=== PATIENT | female | born 1985 | race Caucasian/White ===

== ENCOUNTER 2024-12-17 14:17 | Observation (INO) | payer OTHER ==
[2024-12-17 14:50] LABS: Bacteria/HPF None Seen HPF (None Seen); CAUTI Indications for Culture Pelvic or flank pain; Glucose, Urine (Dipstick) Normal (Negative); Leukocyte Negative Leu/uL (Negative); Protein, Urine (Dipstick) 50 mg/dL (Neg-Trace); RBC/HPF 21-50 HPF (0-3); Specific Gravity, Urine 1.048 (1.002-1.036); WBC/HPF 0-3 HPF (0-3); Yeast-Budding 1+ HPF (None Seen)
[2024-12-17 14:52] LABS: Urine Culture Reflex No No
[2024-12-17 15:02] LABS: BHCG - Serum Negative (NEGATIVE); Pregs Control Background? CLEAR/WHITE (CLR/WHITE); Pregs Control Bar Appear? YES (CONTROL BAR)
[2024-12-17] MEDS ORDERED: Ondansetron PF 4 MG/2 ML Vial ONE (15:02)
[2024-12-17 15:11] LABS: ALT (SGPT) 48 U/L (Less than 34); AST (SGOT) 76 U/L (11-34); Albumin 4.1 g/dL (3.1-4.5); Alkaline Phosphatase 113 U/L (40-110); Anion Gap 13 mmol/L (10-20); BUN (Urea Nitrogen) 15 mg/dL (7.0-18.7); Bilirubin, Total 0.8 mg/dL (0.3-1.2); Calc. Creatinine Clearance 0 mL/min (70-130); Calcium 9.6 mg/dL (7.8-10.44); Carbon Dioxide 23 mmol/L (22-29); Chloride 108 mmol/L (98-107); Globulin 3.5 g/dL (2.4-3.5); Glucose 98 mg/dL (70-105); Lipase 15 U/L (8-78); Magnesium 2.0 mg/dL (1.6-2.6); Potassium 4.5 mmol/L (3.5-5.1); Sodium 139 mmol/L (136-145)
[2024-12-17 15:16] LABS: #Basophils 0.06 10x3/uL (0.0-0.2); #Eosinophils 0.32 10x3/uL (0.0-0.7); #Monocytes 0.47 10x3/uL (0.11-0.59); #Neutrophils 4.28 10x3/uL (1.40-6.50); %Basophils 0.8 % (0.0-1.0); %Eosinophils 4.1 % (0.0-10.0); %Lymphocytes 33.9 % (21.0-51.0); %Monocytes 6.0 % (0.0-10.0); %Neutrophils 54.8 % (42.0-75.0); Hematocrit 37.8 % (36.0-47.0); Hemoglobin 12.4 g/dL (12.0-16.0); Mean Corpuscular Hemoglobin 30.8 pg (27.0-31.0); Mean Corpuscular Volume 93.8 fL (78.0-98.0); Platelet Count 230 10x3/uL (130-400); Red Blood Cell (RBC) Count 4.03 mill/uL (4.20-5.40); White Blood Cell (WBC) Count 7.81 10x3/uL (4.8-10.8)
[2024-12-17] MEDS ORDERED: Ketorolac Tromethamine 30 MG (1 mL) VIAL ONE ×2 (15:47→15:49)
[2024-12-17 17:00] VITALS: BMI 26.5
[2024-12-17] MEDS ORDERED: Ondansetron PF 4 MG/2 ML Vial IVP PRN (17:06)
[2024-12-17] MEDS ORDERED: Glucagon 1 MG/ML KIT IM PRN (17:06)
[2024-12-17] MEDS ORDERED: Dextrose 50% Abboject 50 ML SYRINGE SLOW IVP PRN (17:06)
[2024-12-17] MEDS ORDERED: Acetaminophen 325 MG TAB PO PRN (17:06)
[2024-12-17] MEDS ORDERED: CEFAZOLIN 1 GM VIAL SLOW IVP SCH (21:00)
[2024-12-17] MEDS: Lidocaine 2% Viscous Solution 10 ML, Aluminum & Magnesium Hydroxide 30 ML SSW SCH (22:14)
[2024-12-18 06:02] LABS: #Basophils 0.05 10x3/uL (0.0-0.2); #Eosinophils 0.15 10x3/uL (0.0-0.7); #Monocytes 0.35 10x3/uL (0.11-0.59); #Neutrophils 2.51 10x3/uL (1.40-6.50); %Basophils 1.0 % (0.0-1.0); %Eosinophils 3.1 % (0.0-10.0); %Lymphocytes 35.6 % (21.0-51.0); %Monocytes 7.3 % (0.0-10.0); %Neutrophils 52.4 % (42.0-75.0); Hematocrit 32.7 % (36.0-47.0); Hemoglobin 10.8 g/dL (12.0-16.0); Mean Corpuscular Hemoglobin 31.3 pg (27.0-31.0); Mean Corpuscular Volume 94.8 fL (78.0-98.0); Platelet Count 186 10x3/uL (130-400); Red Blood Cell (RBC) Count 3.45 mill/uL (4.20-5.40); White Blood Cell (WBC) Count 4.80 10x3/uL (4.8-10.8)
[2024-12-18 06:19] LABS: ALT (SGPT) 510 U/L (Less than 34); AST (SGOT) 669 U/L (11-34); Albumin 3.1 g/dL (3.1-4.5); Alkaline Phosphatase 106 U/L (40-110); Anion Gap 8 mmol/L (10-20); BUN (Urea Nitrogen) 13 mg/dL (7.0-18.7); Bilirubin, Total 0.9 mg/dL (0.3-1.2); Calc. Creatinine Clearance 144 mL/min (70-130); Calcium 8.3 mg/dL (7.8-10.44); Carbon Dioxide 21 mmol/L (22-29); Chloride 113 mmol/L (98-107); Globulin 2.4 g/dL (2.4-3.5); Glucose 83 mg/dL (70-105); Potassium 4.3 mmol/L (3.5-5.1); Sodium 138 mmol/L (136-145)
[2024-12-18] MEDS ORDERED: CEFAZOLIN 1 GM VIAL ONE (10:29)
[2024-12-18] MEDS ORDERED: Bupivacaine 0.25% HCL 30 ML VIAL ONE (10:53)
[2024-12-18] MEDS ORDERED: PROPOFOL 20 ML ONE (11:08)
[2024-12-18] MEDS ORDERED: Rocuronium Bromide 10 MG/ML (10ML VIAL) ONE (11:08)
[2024-12-18] MEDS ORDERED: Lidocaine 1% PF 5 ML VIAL ONE (11:08)
[2024-12-18] MEDS ORDERED: fentaNYL PF 100 MCG/2 ML SYRINGE ONE (11:08)
[2024-12-18] MEDS ORDERED: Ondansetron PF 4 MG/2 ML Vial ONE (11:08)
[2024-12-18] MEDS ORDERED: Ketorolac Tromethamine 30 MG (1 mL) VIAL ONE (12:04)
[2024-12-18] MEDS ORDERED: SUGAMMADEX SODIUM 200 MG/2 ML VIAL ONE (12:17)
[2024-12-18] MEDS ORDERED: Meperidine HCl/PF 25 MG (1 mL) VIAL ONE (12:49)
[2024-12-18] MEDS ORDERED: HYDROmorphone 0.5 MG/0.5 ML SYR SLOW IVP PRN (13:15)
[2024-12-18 16:45] VITALS: TEMP 98.3
[2024-12-18 16:46] VITALS: BP 106/65
== END 2024-12-18 18:10 | disposition home or self-care (01) ==
LOC: ERS 14:17 → SURG A 15:49
PROVIDERS: ADMIT Colon & Rectal Surgery; ATTEND Colon & Rectal Surgery
PROC: 0FT44ZZ Resection of Gallbladder, Percutaneous Endoscopic Approach (ICD-10-PCS; principal; 2024-12-18)
PROC: 0FB04ZX Excision of Liver, Percutaneous Endoscopic Approach, Diagnostic (ICD-10-PCS; 2024-12-18)
DX: K80.12 Calculus of gallbladder with acute and chronic cholecystitis without obstruction (principal); K82.8 Other specified diseases of gallbladder; K75.9 Inflammatory liver disease, unspecified; K76.0 Fatty (change of) liver, not elsewhere classified; F12.90 Cannabis use, unspecified, uncomplicated; Z87.891 Personal history of nicotine dependence
CPT/HCPCS: 36415; 76705; 80053; 81001; 83690; 83735; 84703; 85025; 88304; 88307; 88313; 88342; 96365; 96375; 96376; C1889; G0378; J0169; J0665; J0690; J1100; J1885; J2175; J2250; J2270; J2405; J2543; J2704; J3010; J7030

== ENCOUNTER 2024-12-25 08:23 | Outpatient (CLI) | payer OTHER | END 2024-12-25 08:24 | disposition home or self-care (01) | LOC: ULT 08:23 | PROVIDERS: ATTEND Family Medicine | DX: R10.11 Right upper quadrant pain (principal) | CPT/HCPCS: 76700 ==

== ENCOUNTER 2024-12-31 11:01 | Emergency (ER) | payer OTHER ==
[2024-12-31 11:37] LABS: #Basophils 0.05 10x3/uL (0.0-0.2); #Eosinophils 0.29 10x3/uL (0.0-0.7); #Monocytes 0.62 10x3/uL (0.11-0.59); #Neutrophils 5.74 10x3/uL (1.40-6.50); %Basophils 0.5 % (0.0-1.0); %Eosinophils 3.2 % (0.0-10.0); %Lymphocytes 26.0 % (21.0-51.0); %Monocytes 6.8 % (0.0-10.0); %Neutrophils 63.1 % (42.0-75.0); Hematocrit 40.5 % (36.0-47.0); Hemoglobin 13.5 g/dL (12.0-16.0); Mean Corpuscular Hemoglobin 30.8 pg (27.0-31.0); Mean Corpuscular Volume 92.5 fL (78.0-98.0); Platelet Count 224 10x3/uL (130-400); Red Blood Cell (RBC) Count 4.38 mill/uL (4.20-5.40); White Blood Cell (WBC) Count 9.11 10x3/uL (4.8-10.8)
[2024-12-31] MEDS ORDERED: Ketorolac Tromethamine 30 MG (1 mL) VIAL ONE (12:03)
[2024-12-31] MEDS ORDERED: Ondansetron PF 4 MG/2 ML Vial ONE (12:03)
[2024-12-31 12:21] LABS: ALT (SGPT) 96 U/L (Less than 34); AST (SGOT) 170 U/L (11-34); Albumin 3.9 g/dL (3.1-4.5); Alkaline Phosphatase 137 U/L (40-110); Anion Gap 14 mmol/L (10-20); BUN (Urea Nitrogen) 11 mg/dL (7.0-18.7); Bilirubin, Total 1.4 mg/dL (0.3-1.2); Calc. Creatinine Clearance 0 mL/min (70-130); Calcium 10.0 mg/dL (7.8-10.44); Carbon Dioxide 22 mmol/L (22-29); Chloride 108 mmol/L (98-107); Globulin 3.1 g/dL (2.4-3.5); Glucose 100 mg/dL (70-105); Potassium 4.3 mmol/L (3.5-5.1); Sodium 140 mmol/L (136-145)
== END 2024-12-31 15:20 | disposition home or self-care (01) ==
LOC: ERS 11:01
DX: R10.13 Epigastric pain (principal); F17.290 Nicotine dependence, other tobacco product, uncomplicated
CPT/HCPCS: 74177; 80053; 83690; 85025; 96374; 96375; J1885; J2270; J2405

== ENCOUNTER 2025-01-09 08:57 | Outpatient (CLI) | payer OTHER | END 2025-01-09 08:58 | disposition home or self-care (01) | LOC: SCSMRI 08:57 | PROVIDERS: ATTEND Internal Medicine | DX: R10.11 Right upper quadrant pain (principal); R74.8 Abnormal levels of other serum enzymes; R19.4 Change in bowel habit; K80.20 Calculus of gallbladder without cholecystitis without obstruction | CPT/HCPCS: 74183; 76376; S8037 ==

== ENCOUNTER 2025-01-22 09:43 | Day surgery (SDC) | payer OTHER ==
[2025-01-20 14:29] VITALS: BMI 26.5
[2025-01-22] MEDS ORDERED: Lidocaine 1% PF 5 ML VIAL ONE (12:50)
[2025-01-22] MEDS ORDERED: PROPOFOL 20 ML ONE (12:50)
[2025-01-22] MEDS ORDERED: Rocuronium Bromide 10 MG/ML (10ML VIAL) ONE (12:50)
[2025-01-22] MEDS ORDERED: Ondansetron PF 4 MG/2 ML Vial ONE (12:53)
[2025-01-22] MEDS ORDERED: SUCCINYLCHOLINE/SOD CL,ISO/PF 200 MG/10 ML SYRINGE FS ONE (13:05)
[2025-01-22] MEDS ORDERED: Glycopyrrolate 0.2 MG/ML 5 ML SYRINGE ONE (13:10)
[2025-01-22] MEDS ORDERED: fentaNYL PF 100 MCG/2 ML SYRINGE ONE (13:58)
[2025-01-22] MEDS ORDERED: HYDROcodone/Acetaminophen 5/325 mg Tablet ONE (16:11)
== END 2025-01-22 16:30 | disposition home or self-care (01) ==
LOC: SDC 09:43
PROVIDERS: ATTEND Internal Medicine
PROC: 0FC98ZZ Extirpation of Matter from Common Bile Duct, Via Natural or Artificial Opening Endoscopic (ICD-10-PCS; principal; 2025-01-22)
DX: K80.50 Calculus of bile duct without cholangitis or cholecystitis without obstruction (principal); K29.80 Duodenitis without bleeding; Z87.891 Personal history of nicotine dependence
CPT/HCPCS: 74330; J1100; J2704; Q9967